=== PATIENT | female | born 1935 | race African-American/Black ===

== ENCOUNTER → 2019-05-29 | Outpatient (CLI) | payer MEDICARE, BC ==
[~2019-05-29] MED LIST: CARV6.2548 PO; CHOL20004 PO; CLOP75TA33; DIGO125T20; DOXE25CA3; FERR-43 PO; FOLI-43 PO; HYDR200T35; ISOS1TAB; LEVO100T9; LISI-186; METH4TAB17; METO-539; OMEG1CAP17 PO; POTA-9; SULF-165 PO; WARF-53; calcium PO; vitamin E PO
[2019-05-29 12:34] LABS: CHLORIDE 109 mEq/L (98-107)
== END | disposition home or self-care (01) ==
LOC: LAB 11:47
PROVIDERS: ATTEND Internal Medicine Clinical Cardiac Electrophysiology
DX: I42.0 Dilated cardiomyopathy (principal); I50.22 Chronic systolic (congestive) heart failure
CPT/HCPCS: 36415; 80048; 83735; 83880; 84484

== ENCOUNTER 2019-06-05 12:56 | Inpatient (IN) | payer MEDICARE, BC ==
[~2019-06-05] VITALS: Ht 162.6 cm; Wt 61.0 kg
[2019-06-05] MEDS ORDERED: ASPIRIN 81MG TABLET PO ONE (13:15)
[2019-06-05] MEDS ORDERED: FUROSEMIDE 40MG/4ML VIAL IVP ONE (14:15)
[2019-06-05 14:34] LABS: HEMOGLOBIN. 12.2 g/dL (12.0-16.0); MEAN CORPUSCULAR HEMOGLOBIN 27.2 pg (28.0-32.0); MEAN CORPUSCULAR VOLUME 82.3 fL (81.0-99.0); MEAN PLATELET VOLUME 8.7 fl (7.4-10.4); PLATELET 206 x1000/uL (130-400); RED CELL DISTRIBUTION WIDTH 16.2 % (11.6-14.6)
[2019-06-05 14:43] LABS: CHLORIDE 98 mEq/L (98-107); INR 1.8; PROTHROMBIN TIME 18.4 sec (9.6-11.0)
[2019-06-05] MEDS ORDERED: FUROSEMIDE 100MG/10ML VIAL IV NR (15:15)
[2019-06-05] MEDS ORDERED: DEXTROSE 50% WATER 50ML SYRINGE IV NR (15:15)
[2019-06-05] MEDS ORDERED: INSULIN REGULAR (HUMULIN R) 300UNITS/3ML IV NR (15:15)
[2019-06-05] MEDS ORDERED: SODIUM BICARBONATE 8.4% 1 MEQ/ML 50ML SYR IV NR (15:15)
[2019-06-05 16:00] LABS: PLATELET ESTIMATE NORMAL
[2019-06-05] MEDS ORDERED: SODIUM POLYSTYRENE SULFONATE 15 G/60 ML BOT PO NR (17:00)
[2019-06-05] MEDS: NITROGLYCERIN OINT 1GM/INCH UDPKT TD SCH (22:00)
[2019-06-05] MEDS ORDERED: IPRATROPIUM/ALBUTEROL 0.5-3(2.5)MG/3ML NEB HHN PRN (23:45)
[2019-06-05] MEDS ORDERED: ONDANSETRON HCL 4MG/2ML INJ IV PRN (23:45)
[2019-06-05] MEDS ORDERED: ACETAMINOPHEN 325MG TABLET PO PRN (23:45)
[2019-06-05] MEDS ORDERED: GUAIFENESIN 200MG/10ML SUGAR FREE UDC PO PRN (23:45)
[2019-06-06] MEDS ORDERED: CARVEDILOL 6.25 MG TABLET PO NR (04:00)
[2019-06-06 06:00] LABS: BASOPHILS % 0.1 % (0.0-2.0); HEMATOCRIT. 39.6 % (36.0-48.0); HEMOGLOBIN. 12.8 g/dL (12.0-16.0); LYMPHOCYTES % 10.1 % (20.0-50.0); MEAN CORPUSCULAR VOLUME 83.3 fL (81.0-99.0); MEAN PLATELET VOLUME 8.9 fl (7.4-10.4); MONOCYTES % 9.6 % (2.0-8.0); NEUTROPHILS % 80.2 % (40.0-76.0); PLATELET 205 x1000/uL (130-400); RED BLOOD CELL COUNT 4.75 mill/uL (4.2-5.4)
[2019-06-06] MEDS: NITROGLYCERIN OINT 1GM/INCH UDPKT TD SCH ×3 (06:05→21:46)
[2019-06-06] MEDS: SODIUM CHLORIDE 0.9% INJ 3ML FLUSH IVF SCH ×3 (06:05→21:46)
[2019-06-06] MEDS: LEVOTHYROXINE SODIUM 100MCG TABLET PO SCH (07:50)
[2019-06-06] MEDS ORDERED: REGADENOSON 0.4 MG/5 ML IV SCH (08:45)
[2019-06-06] MEDS ORDERED: REGADENOSON 0.4 MG/5 ML IV ONE ×2 (10:00→11:59)
[2019-06-06 11:02] VITALS: BP 136/95
[2019-06-06 14:00] VITALS: BP 149/97
[2019-06-06] MEDS: CARVEDILOL 6.25 MG TABLET PO SCH ×2 (14:12→21:46)
[2019-06-06] MEDS: AMLODIPINE 2.5MG TABLET PO SCH (14:12)
[2019-06-06] MEDS: FUROSEMIDE 40MG/4ML VIAL IVP SCH (14:12)
[2019-06-06 16:00] VITALS: BP 144/91
[2019-06-06] MEDS ORDERED: MILRINONE 20MG-DEXT 5% PREMIX 100 ML IV SCH (17:00)
[2019-06-06] MEDS ORDERED: ENOXAPARIN 30MG/0.3ML SYR SUBCUT SCH (17:00)
[2019-06-06 18:00] VITALS: BP 134/91
[2019-06-06 20:00] VITALS: BP 131/89
[2019-06-06 22:00] VITALS: BP 132/95
[2019-06-07] VITALS (95 sets, daily range): BP systolic -3–261; BP diastolic -6–132
[2019-06-07] MEDS: SODIUM CHLORIDE 0.9% INJ 3ML FLUSH IVF SCH ×2 (06:03→14:25)
[2019-06-07] MEDS: NITROGLYCERIN OINT 1GM/INCH UDPKT TD SCH ×2 (06:04→14:33)
[2019-06-07] MEDS: LEVOTHYROXINE SODIUM 100MCG TABLET PO SCH (06:04)
[2019-06-07] MEDS: AMLODIPINE 2.5MG TABLET PO SCH (09:01)
[2019-06-07] MEDS: FUROSEMIDE 40MG/4ML VIAL IVP SCH (09:01)
[2019-06-07] MEDS: CARVEDILOL 6.25 MG TABLET PO SCH (09:02)
[2019-06-07] MEDS ORDERED: ETOMIDATE 2MG/ML 10ML VIAL IV ONE (11:11)
[2019-06-07] MEDS ORDERED: SODIUM CHLORIDE 0.9% 10ML VIAL ONE (11:11)
[2019-06-07] MEDS ORDERED: VECURONIUM BROMIDE 10 MG/VIAL IV ONE (11:11)
[2019-06-07] MEDS ORDERED: SODIUM CHLORIDE 0.9% 250 ML IV ONE (11:30)
[2019-06-07] MEDS ORDERED: IPRATROPIUM/ALBUTEROL 0.5-3(2.5)MG/3ML NEB HHN PRN (11:45)
[2019-06-07 12:36] LABS: HEMATOCRIT. 43.9 % (36.0-48.0); HEMOGLOBIN. 14.3 g/dL (12.0-16.0); MEAN CORPUSCULAR HEMOGLOBIN 27.1 pg (28.0-32.0); MEAN CORPUSCULAR VOLUME 83.1 fL (81.0-99.0); MEAN PLATELET VOLUME 8.5 fl (7.4-10.4); PLATELET 172 x1000/uL (130-400); RED BLOOD CELL COUNT 5.28 mill/uL (4.2-5.4); RED CELL DISTRIBUTION WIDTH 16.3 % (11.6-14.6)
[2019-06-07] MEDS: NOREPINEPHRINE 4 MG in DEXT 5% WATER 246 ML IV PRN ×2 (12:39→13:00)
[2019-06-07] MEDS ORDERED: PHENYLEPHRINE 40 MG in DEXT 5% WATER 246 ML IV PRN (12:45)
[2019-06-07 12:46] LABS: CHLORIDE 103 mEq/L (98-107)
[2019-06-07] MEDS ORDERED: METRONIDAZOLE 500MG TABLET PO SCH (13:00)
[2019-06-07 13:43] LABS: NUCLEATED RED BLOOD CELLS 6 /100 WBC
[2019-06-07 13:51] LABS: PLATELET ESTIMATE NORMAL
[2019-06-07] MEDS ORDERED: PHENYLEPHRINE 80 MG in DEXT 5% WATER 492 ML IV PRN ×2 (14:00→14:45)
[2019-06-07] MEDS ORDERED: NOREPINEPHRINE 32 MG in DEXT 5% WATER 468 ML IV PRN (14:00)
[2019-06-07] MEDS ORDERED: VANCOMYCIN 1250MG in DEXTROSE 5% WATER 250ML IV SCH (14:00)
[2019-06-07] MEDS ORDERED: WATER IV PRN ×2 (14:15→15:01)
[2019-06-07] MEDS ORDERED: CALCIUM CHLORIDE IV PRN ×2 (14:15→15:01)
[2019-06-07] MEDS ORDERED: EPINEPHRINE IV PRN ×2 (14:15→15:01)
[2019-06-07] MEDS ORDERED: DEXT 5% IV PRN ×2 (14:15→15:01)
[2019-06-07] MEDS ORDERED: SODIUM BICARBONATE 8.4% 1 MEQ/ML 50ML SYR IV SCH (16:45)
[2019-06-07] MEDS ORDERED: SODIUM BICARBONATE 8.4% 1 MEQ/ML 50ML SYR IV ONE (16:45)
[2019-06-07] MEDS: IPRATROPIUM/ALBUTEROL 0.5-3(2.5)MG/3ML NEB HHN SCH ×2 (16:46→21:11)
[2019-06-07] MEDS ORDERED: SODIUM BICARBONATE IV SCH (18:00)
[2019-06-07] MEDS ORDERED: DEXT IV SCH (18:00)
[2019-06-07] MEDS ORDERED: NACL IV SCH (18:00)
[2019-06-07] MEDS ORDERED: METRONIDAZOLE 500 MG PREMIX 100 ML IV SCH (21:00)
[2019-06-07] MEDS ORDERED: SODIUM BICARBONATE 8.4% 1 MEQ/ML 50ML SYR IV NR (21:15)
[2019-06-08 09:49] LABS: BG BASE EXCESS -2.9 mmol/L (-2.0-2.0); BG CARBOXYHEMOGLOBIN 1.3 % (0.5-1.5); BG FRACTION INSPIRED OXYGEN 100; BG HCO3 ACT 23.8 mmol/L (22.0-26.0); BG METHEMOGLOBIN 0.5 % (0.0-1.5); BG OXYHEMOGLOBIN 97.2 % (94.0-97.0); BG PCO2 48.4 mmHg (35.0-45.0); BG PH 7.309 (7.350-7.450); BG PO2 174.1 mmHg (75.0-100.0); BG SAMPLE SITE RIGHT RADIAL; BG TIDAL VOLUME(mL) 450 mL; BG VENT MODE VENT - A/C; BG VENT RATE 16 set
[2019-06-08 09:49] LABS: BG BASE EXCESS -10.5 mmol/L (-2.0-2.0); BG CARBOXYHEMOGLOBIN 0.9 % (0.5-1.5); BG DEOXYHEMOGLOBIN 12.1 % (0.0-5.0); BG FRACTION INSPIRED OXYGEN 100; BG HCO3 ACT 16.7 mmol/L (22.0-26.0); BG METHEMOGLOBIN 0.4 % (0.0-1.5); BG OXYGEN SATURATION 87.7 % (92.0-98.5); BG OXYHEMOGLOBIN 86.6 % (94.0-97.0); BG PCO2 41.6 mmHg (35.0-45.0); BG PH 7.222 (7.350-7.450); BG PO2 66.8 mmHg (75.0-100.0); BG SAMPLE SITE RIGHT RADIAL; BG TIDAL VOLUME(mL) 500 mL; BG TOTAL HEMOGLOBIN 14.8 g/dL (12.0-18.0); BG VENT MODE VENT - A/C; BG VENT RATE 18 set
[2019-06-08 09:50] LABS: BG BASE EXCESS -8.7 mmol/L (-2.0-2.0); BG CARBOXYHEMOGLOBIN 0.2 % (0.5-1.5); BG DEOXYHEMOGLOBIN 30.5 % (0.0-5.0); BG FRACTION INSPIRED OXYGEN 100; BG HCO3 ACT 18.1 mmol/L (22.0-26.0); BG METHEMOGLOBIN 0.1 % (0.0-1.5); BG OXYGEN SATURATION 69.4 % (92.0-98.5); BG OXYHEMOGLOBIN 69.2 % (94.0-97.0); BG PCO2 42.6 mmHg (35.0-45.0); BG PH 7.247 (7.350-7.450); BG PO2 42.5 mmHg (75.0-100.0); BG SAMPLE SITE A-LINE; BG TIDAL VOLUME(mL) 500 mL; BG VENT MODE VENT - A/C; BG VENT RATE 22 set
== END 2019-06-07 21:52 | disposition expired | DRG 208 ==
LOC: ER 13:24 → 3WST 13:32 → EDBEDREQ 13:55 → EDBEDREQSVC 13:55 → CANRESERV 14:49 → ENRESERV 14:49 → EDBEDREQSVC 06-06 04:05 → EDBEDREQDT 06-06 04:05 → EDBEDREQTM 06-06 04:05 → ENRESERV 06-06 08:15 → MICUNO 06-07 11:23 → 3WST 06-07 11:27 → MICUSO 06-07 11:50
PROVIDERS: ADMIT Internal Medicine; ATTEND Internal Medicine
PROC: 5A12012 Performance of Cardiac Output, Single, Manual (ICD-10-PCS; principal; 2019-06-07)
PROC: 5A1935Z Respiratory Ventilation, Less than 24 Consecutive Hours (ICD-10-PCS; 2019-06-07)
PROC: 02HV33Z Insertion of Infusion Device into Superior Vena Cava, Percutaneous Approach (ICD-10-PCS; 2019-06-07)
PROC: B5181ZA Fluoroscopy of Superior Vena Cava using Low Osmolar Contrast, Guidance (ICD-10-PCS; 2019-06-07)
PROC: 04HY32Z Insertion of Monitoring Device into Lower Artery, Percutaneous Approach (ICD-10-PCS; 2019-06-07)
PROC: 4A133B1 Monitoring of Arterial Pressure, Peripheral, Percutaneous Approach (ICD-10-PCS; 2019-06-07)
PROC: 4A133J1 Monitoring of Arterial Pulse, Peripheral, Percutaneous Approach (ICD-10-PCS; 2019-06-07)
PROC: 0BH17EZ Insertion of Endotracheal Airway into Trachea, Via Natural or Artificial Opening (ICD-10-PCS; 2019-06-07)
DX: J96.00 Acute respiratory failure, unspecified whether with hypoxia or hypercapnia (principal); J69.0 Pneumonitis due to inhalation of food and vomit; I50.43 Acute on chronic combined systolic (congestive) and diastolic (congestive) heart failure; I13.0 Hypertensive heart and chronic kidney disease with heart failure and stage 1 through stage 4 chronic kidney disease, or unspecified chronic kidney disease; E87.2 Acidosis; K56.7 Ileus, unspecified; I42.0 Dilated cardiomyopathy; I25.10 Atherosclerotic heart disease of native coronary artery without angina pectoris; E89.0 Postprocedural hypothyroidism; E87.5 Hyperkalemia; I48.91 Unspecified atrial fibrillation; M19.90 Unspecified osteoarthritis, unspecified site; N18.9 Chronic kidney disease, unspecified; I45.10 Unspecified right bundle-branch block; I95.9 Hypotension, unspecified; I46.9 Cardiac arrest, cause unspecified; Z82.49 Family history of ischemic heart disease and other diseases of the circulatory system; Z88.0 Allergy status to penicillin; Z90.49 Acquired absence of other specified parts of digestive tract; Z95.810 Presence of automatic (implantable) cardiac defibrillator
CPT/HCPCS: 31500; 36415; 36600; 71045; 74018; 76700; 78452; 80048; 80053; 82375; 82805; 82962; 83735; 83880; 84443; 84484; 85025; 93005; 93017; 93306; 94002; 94640; 99291; A9500; J1650; J1815; J1940; J2260; J2370; J2785; J3370; J3490; J7040; J7060; A4315